=== PATIENT | male | born 1955 | race Caucasian/White ===

== ENCOUNTER → 2016-03-15 | Outpatient (CLI) | payer OTHER ==
[~2016-03-15] MED LIST: FEXO1TAB49 PO; HYDR-5688 PO; IBUP-103 PO; MISCCAP80 PO; OMEG10007 PO
[2016-03-15 14:42] LABS: BASO % 0.6 %; BASO ABS # 0.05 K/uL (0-0.2); COMPLETE YES; HEMATOCRIT 47.3 % (42-52); IG% 0.3 %; LYMPH % 21.1 %; LYMPH ABS # 1.66 K/uL (1.2-3.4); MEAN CELL VOLUME 89.1 fL (80-100); MEAN PLATELET VOLUME 11.5 fL (7.4-10.4); MONO % 7.8 %; NEUT % 69.2 %; PLATELET COUNT 175 K/uL (130-400); RED BLOOD COUNT 5.31 M/uL (4.7-6.1); WHITE BLOOD COUNT 7.87 K/uL (4.8-10.8)
[2016-03-15 15:04] LABS: BLOOD UREA NITROGEN 22 mg/dl (7-18); BUN/CREATININE RATIO 21.7 (10-20); CALCIUM 9.2 mg/dl (8.5-10.1); CARBON DIOXIDE 25 mmol/L (21-32); CHLORIDE 105 mmol/L (98-107); CREATININE 0.99 mg/dl (0.60-1.40); GLUCOSE 74 mg/dl (70-99); POTASSIUM 4.3 mmol/L (3.5-5.1); SODIUM 140 mmol/L (136-145)
== END | disposition home or self-care (01) ==
LOC: C.LAB1850 13:09
PROVIDERS: ATTEND Surgery
DX: Z01.812 Encounter for preprocedural laboratory examination (principal); D17.1 Benign lipomatous neoplasm of skin and subcutaneous tissue of trunk

== ENCOUNTER → 2016-03-16 | Outpatient (CLI) | payer OTHER | END | disposition home or self-care (01) | LOC: C.CPL 17:03 | PROVIDERS: ATTEND Surgery | DX: D17.1 Benign lipomatous neoplasm of skin and subcutaneous tissue of trunk (principal) ==

== ENCOUNTER → 2016-03-20 | Day surgery (SDC) | payer OTHER ==
[2016-03-14 08:40] VITALS: Ht 175.3 cm; Wt 84.1 kg
[~2016-03-20] VITALS: Ht 175.3 cm; Wt 84.1 kg
[~2016-03-20] MED LIST changes: +ATROPINE SULFATE 0.1 MG/ML 5ML SYR IV PRN; +CEFAZOLIN 2000 MG/60 ML D5W IV SCH; +EpHEDrine SULFATE INJ 50 MG/ML AMP IV PRN; +FENTANYL CITRATE INJ 50 MCG/1 ML 2 ML VIAL IV PRN; +FENTANYL CITRATE INJ 50 MCG/1 ML 2 ML VIAL ONE; +HYDROCODONE/ACETAMOPHEN 5/325MG TAB PO PRN; +HYDROmorphone INJ 1 MG/ML SYR IV PRN; +LACTATED RINGER'S 1000ML 1,000 ML IV SCH; +LIDOCAINE HCL 1% 20 ML VIAL ONE; +LIDOCAINE HCL 2% 2 ML VIAL (20MG/ML) ONE; +MIDAZOLAM HCL 1 MG/ML 2ML VIAL ONE; +ONDANSETRON INJ 2 MG/ML 2 ML VIAL IV PRN; +PROPOFOL IV EMULSION 10 MG/ML 20 ML VIAL IV ONE; +SODIUM CHLORIDE 0.9% 1000ML 1,000 ML IV SCH
[2016-03-20 13:49] VITALS: TEMP 36.5
--- NOTE | 2016-03-20 13:51 | [facility] Operative Report ---
Operative Report Operative Date Mar 20, 2016. Pre-Operative Diagnosis left chest lipoma Post-Operative Diagnosis same Procedure(s) Performed excision Lt chest lipoma Surgeon dr short Disability Program Navigator Surgeon(s) none Estimated Blood Loss 5CC Findings 4x3.5 cm intramuscular lipoma Specimens a lipoma left chest Anesthesia local / sedation Complication(s) None Disposition Recovery Room / PACU I attest to the content of the Intraoperative Record and any orders documented therein. Any exceptions are noted below.
--- NOTE | 2016-03-20 13:55 | Discharge Instructions-[facility]urgCtr ---
Discharge Instructions Visit Reason for Visit: Left Chest Lipoma Discharge Discharge Diagnosis / Problem: lipoma Discharge Goals Goal(s): Decrease discomfort, Improve function, Improve disease control Activity Recommendations Activity Limitations: as noted below Lifting Limitations: no more than 25 pounds Exercise/Sports Limitations: until after follow-up appointment May Resume Sexual Activity: when tolerated Shower/Bathe: keep incision dry (may shower over incision on 03/22) Driving or Machine Use: resume 1 day after discharge SPECIAL CARE INSTRUCTIONS: * Cover incisions and change daily for comfort/drainage. * Leave steri strips in place * May use ibuprofen for pain as tolerated. * Expect some swelling and bruising. Call your doctor if: * Temperature above 101 degrees * Pain not relieved by pain medicine ordered * There is increased drainage or redness from any incision * You have any unanswered questions or concerns [phone]. FOLLOW UP VISIT: If not already scheduled, please call the office for a follow-up visit. for next week- suture removal OFFICE PHONE NUMBER: Dr. Mckeon Office Anesthesia . Post Anesthesia Instructions: If you have had General Anesthesia or IV Sedation: * Do not drive today. * Resume driving when surgeon permits. * Do not make important decisions or sign legal documents today. * Call surgeon for: 1. Temperature elevations greater than 101 degrees F. 2. Uncontrollable pain. 3. Excessive bleeding. 4. Persistent nausea and vomiting. 5. Medication intolerance (nausea, vomiting or rash). * For nausea and vomiting use only clear liquids such as: tea, soda, bouillon until nausea subsides, then gradually increase diet as tolerated. * If you have any concerns or questions, call your surgeon's office. If physician is unavailable and it is an emergency, call 911 or go to the nearest emergency room. . Diet Recommendations Home Diet: resume previous diet Procedures Procedures Performed: Left Chest Lipoma Excision Pending Studies Studies pending at discharge: no Medical Emergencies . Who to Call and When: Medical Emergencies: If at any time you feel your situation is an emergency, please call 911 immediately. . Non-Emergent Contact Non-Emergency issues call your: Surgeon . . "Provider Documentation" section prepared by Fareed Mckeon.
--- NOTE | 2016-03-20 14:17 | OPERATIVE REPORT ---
DATE OF OPERATION: 03/20/2016 PREOPERATIVE DIAGNOSIS: Left chest lipoma. POSTOPERATIVE DIAGNOSIS: Same. NAME OF OPERATION: Excision of 4 x 3.5 cm lipoma. FINDINGS: The lipoma was intermuscular in the serratus muscle on the left side of the chest. STAFF SURGEON: Dr. Mckeon. ANESTHESIA: 1% plain lidocaine with sedation. PROCEDURE: The patient was brought in the operating room and placed on the operating room table in supine position. His left arm was extended onto an arm board. His left chest was prepped and draped in usual fashion. Using 1% plain lidocaine incision was made in the left chest, carrying dissection down through the subcutaneous tissue and then the latissimus dorsi muscle was posterior and the lipoma was obviously intramuscular within the serratus muscle. It was gently dissected away from the muscle fibers being careful not to cut the muscle fibers and excising the lipoma which was 4 x 3.5 cm in diameter. The deep muscle was reapproximated in the bed of the lipoma using 2-0 chromic catgut suture and then the subcutaneous tissue reapproximated using 2-0 plain catgut suture, then the skin reapproximated using subcuticular 5-0 Monocryl with the knots on the outside of the skin with Steri-Strips applied. The patient was transferred to recovery room in stable condition. I attest to the content of the Intraoperative Record and any orders documented therein. Any exceptio ns are noted below.
[2016-03-20 14:19] VITALS: BP 119/82; PULSE 69; O2SAT 98
--- NOTE | 2016-03-20 14:20 | Anesthesia Progress Nt - [facility] ---
Anesthesia Post Op Note Date & Time Mar 20, 2016 at 14:19 Vital Signs Pain Intensity: 0 Vital Signs Past 12 Hours Date Time Temp Pulse Resp B/P Pulse Ox O2 Delivery O2 Flow Rate FiO2 03/20/16 13:49 36.5 71 16 113/70 96 Room Air 03/20/16 12:09 36.6 80 16 124/84 98 Room Air Notes Mental Status: alert / awake / arousable, participated in evaluation Pt Amnestic to Procedure: Yes Nausea / Vomiting: adequately controlled Pain: adequately controlled Airway Patency, RR, SpO2: stable & adequate BP & HR: stable & adequate Hydration State: stable & adequate Anesthetic Complications: no major complications apparent
== END | disposition home or self-care (01) ==
LOC: X.SURG 11:59
PROVIDERS: ATTEND Surgery
DX: D21.3 Benign neoplasm of connective and other soft tissue of thorax (principal); N41.0 Acute prostatitis; M19.90 Unspecified osteoarthritis, unspecified site; R53.83 Other fatigue; G47.30 Sleep apnea, unspecified

== ENCOUNTER → 2016-09-26 | Outpatient (CLI) | payer OTHER ==
[~2016-09-26] MED LIST changes: -ATROPINE SULFATE 0.1 MG/ML 5ML SYR IV PRN; -CEFAZOLIN 2000 MG/60 ML D5W IV SCH; -EpHEDrine SULFATE INJ 50 MG/ML AMP IV PRN; -FENTANYL CITRATE INJ 50 MCG/1 ML 2 ML VIAL IV PRN; -FENTANYL CITRATE INJ 50 MCG/1 ML 2 ML VIAL ONE; -HYDR-5688 PO; -HYDROCODONE/ACETAMOPHEN 5/325MG TAB PO PRN; -HYDROmorphone INJ 1 MG/ML SYR IV PRN; -LACTATED RINGER'S 1000ML 1,000 ML IV SCH; -LIDOCAINE HCL 1% 20 ML VIAL ONE; -LIDOCAINE HCL 2% 2 ML VIAL (20MG/ML) ONE; -MIDAZOLAM HCL 1 MG/ML 2ML VIAL ONE; -ONDANSETRON INJ 2 MG/ML 2 ML VIAL IV PRN; -PROPOFOL IV EMULSION 10 MG/ML 20 ML VIAL IV ONE; -SODIUM CHLORIDE 0.9% 1000ML 1,000 ML IV SCH
[2016-09-26 15:13] LABS: ALT/SGPT 40 U/L (12-78); AST/SGOT 20 U/L (15-37); BLOOD UREA NITROGEN 25 mg/dl (7-18); BUN/CREATININE RATIO 24.7 (10-20); CALCIUM 9.2 mg/dl (8.5-10.1); CARBON DIOXIDE 30 mmol/L (21-32); CHLORIDE 107 mmol/L (98-107); CHOLESTEROL 181 mg/dl (0-200); GLUCOSE 87 mg/dl (70-99); POTASSIUM 4.7 mmol/L (3.5-5.1); SODIUM 142 mmol/L (136-145)
[2016-09-26 15:17] LABS: HDL CHOLESTEROL 61 mg/dl; LDL CHOLESTEROL CALCULATED 104 mg/dl; PROSTATE SPECIFIC ANTIGEN 0.702 ng/ml (0.000-4.000); TRIGLYCERIDES 78 mg/dl (0-150); VERY LOW DENSITY LIPOPROT CALC 16 mg/dl
== END | disposition home or self-care (01) ==
LOC: C.LAB1850 12:43
PROVIDERS: ATTEND Internal Medicine
DX: E78.00 Pure hypercholesterolemia, unspecified (principal); N40.1 Benign prostatic hyperplasia with lower urinary tract symptoms

== ENCOUNTER → 2017-04-22 | Day surgery (SDC) | payer OTHER ==
[2017-04-12 09:19] VITALS: Ht 177.8 cm; Wt 84.1 kg
[~2017-04-22] VITALS: Ht 177.8 cm; Wt 84.1 kg
[~2017-04-22] MED LIST changes: +LIDOCAINE HCL 2% 2 ML VIAL (20MG/ML) ONE; +PROPOFOL IV EMULSION 10 MG/ML 20 ML VIAL IV ONE
--- NOTE | 2017-04-22 10:28 | Endo History and Physical ---
History & Physical Date of Service: Apr 22, 2017. Chief Complaint: screening Referring Physician: Dr. Mu Arias History of Present Illness 62 yo CM who presents for screening colonoscopy. Past Surgical History Hx Cardiac Surgery: No Hx Internal Defibrillator: No Hx Pacemaker: No Hx Abdominal Surgery: Yes (APPY) Hx of Implantable Prosthesis: No Hx Post-Op Nausea and Vomiting: No Hx Cancer Surgery: Yes (EAR/FOREHEAD MOHS PROCEDURE) Hx Thoracic Surgery: No Hx Orthopedic: No Hx Urinary Tract Surgery: No Family History None Social History Smoking Status: Never Smoker Hx Substance Use: No Hx Alcohol Use: Yes ("VERY LITTLE") Allergies Coded Allergies: No Known Allergies (Verified , 04/22/17) Current Medications Reported Home Medications Medications Dose Route/Sig Max Daily Dose Days Date Category Advil (Ibuprofen) 200 Mg Tab 200-600 Mg PO Q4H PRN 03/14/16 Reported [place]-3 (Fish Oil) 1 Ea Cap 1 Cap PO QAM 03/14/16 Reported Probiotic (Probiotic Product) 1 Cap Cap 1 Cap PO QAM 02/16/15 Reported Marlys Allergy (Fexofenadine Hcl) 180 Mg Tab 1 Tab PO QAM 02/16/15 Reported Vital Signs Weight (Kilograms): 84.09 Height (Feet): 5 Height (Inches): 10 Date Time Temp Pulse Resp B/P (MAP) Pulse Ox O2 Delivery O2 Flow Rate FiO2 04/22/17 10:07 36.5 84 18 149/89 (109) 95 Room Air Physical Exam General Appearance: WD/WN, no apparent distress Respiratory/Chest: Auscultation: breath sounds normal Cardiovascular: Heart Auscultation: RRR Abdomen: Bowel Sounds: normal Inspection & Palpation: soft, non-distended, no tenderness, guarding & rebound Assessment and Plan Assessment: 62 yo CM who presents for screening colonoscopy. Plan: Proceed with colonoscopy.
--- NOTE | 2017-04-22 11:18 | Discharge Instructions ---
Endoscopy Patient Instructions Date / Procedure(s) Performed Apr 22, 2017. Colonoscopy Allergy Information Coded Allergies: No Known Allergies (Verified , 04/22/17) Discharge Date / Findings Apr 22, 2017. Internal hemorrhoids Medication Instructions OK to resume all medications today as prescribed Reported Home Medications Medications Dose Route/Sig Max Daily Dose Days Date Category Advil (Ibuprofen) 200 Mg Tab 200-600 Mg PO Q4H PRN 03/14/16 Reported [place]-3 (Fish Oil) 1 Ea Cap 1 Cap PO QAM 03/14/16 Reported Probiotic (Probiotic Product) 1 Cap Cap 1 Cap PO QAM 02/16/15 Reported Marlys Allergy (Fexofenadine Hcl) 180 Mg Tab 1 Tab PO QAM 02/16/15 Reported Provider Instructions Activity Restrictions - No exercising or heavy lifting for 24 hours. - Do not drink alcohol the day of the procedure. - Do not drive a car or operate machinery until the day after the procedure. - Do not make any important decisions or sign important papers in 24 hours after the procedure. Following Day: - Return to full activity which may include returning to work/school. Diet Start your diet with liquids and light foods (jello, soup, juice, toast). Then eat your usual diet if not nauseated. Treatment For Common After Affects For mild abdominal pain, bloating, or excessive gas: - Rest - Eat lightly - Lie on right side Follow-Up Information Follow-up with Dr. Mu Arias as scheduled Anesthesia Information What You Should Know You have had a procedure that required some medicine to reduce anxiety and discomfort. This treatment is called moderate sedation. After receiving the treatment, you may be sleepy, but you will be able to breathe on your own. The effects of the treatment may last for several hours. Follow these instructions along with Activity/Diet recommendations noted above: * Do NOT do anything where dizziness or clumsiness would be dangerous. * Rest quietly at home today, then you can be up and about tomorrow. * Have a responsible person stay with you the rest of today. * You may have had an I.V. today. If so, you may take the dressing off later today. Recommendations Call your doctor if: * Trouble breathing * Continuous vomiting for more than 24 hours * Temperature above 101 degrees * Severe abdominal pain or bloating * Pain not relieved by pain medicine ordered * There is increased drainage or redness from any incision * A large amount of rectal bleeding greater than 2-3 tablespoons. (If you had a polyp/s removed or have hemorrhoids, a small amount of blood - from the rectum is to be expected.) * You have any unanswered questions or concerns. IN THE EVENT OF A SERIOUS EMERGENCY, GO TO THE NEAREST EMERGENCY ROOM Your discharge instructions were prepared by provider Horacio Guerra. Patient Instructions Signature Page Mu Umaña Patient (or Guardian) Signature/Date: I have read and understand the instructions given to me by my caregivers. Caregiver/RN/Doctor Signature/Date: The above-named patient and/or guardian has received patient instructions on this date. + Original Patient Signature Page (only) stays with chart. Please make copy for patient.
--- NOTE | 2017-04-22 11:18 | GI REPORT ---
Procedure Date: 04/22/2017 10:33 AM Procedure: Colonoscopy Indications: Screening for colorectal malignant neoplasm Medicines: Monitored Anesthesia Care Complications: No immediate complications. Estimated Blood Loss: Estimated blood loss: none. Procedure: Pre-Anesthesia Assessment: - Prior to the procedure, a History and Physical was performed, and patient medications and allergies were reviewed. The patient's tolerance of previous anesthesia was also reviewed. The risks and benefits of the procedure and the sedation options and risks were discussed with the patient. All questions were answered, and informed consent was obtained. Prior Anticoagulants: The patient has taken no previous anticoagulant or antiplatelet agents. ASA Grade Assessment: I - A normal, healthy patient. After reviewing the risks and benefits, the patient was deemed in satisfactory condition to undergo the procedure. After I obtained informed consent, the scope was passed under direct vision. Throughout the procedure, the patient's blood pressure, pulse, and oxygen saturations were monitored continuously. The scope was introduced through the anus and advanced to the terminal ileum. The colonoscopy was performed without difficulty. The patient tolerated the procedure well. The quality of the bowel preparation was good. The terminal ileum, ileocecal valve, appendiceal orifice, and rectum were photographed. Findings: The perianal and digital rectal examinations were normal. Non-bleeding internal hemorrhoids were found during retroflexion. The hemorrhoids were small. Impression: - Non-bleeding internal hemorrhoids. - No specimens collected. Recommendation: - Resume previous diet. - Continue present medications. - Repeat colonoscopy in 10 years for surveillance. - Return to primary care physician as previously scheduled. Horacio Guerra DO 04/22/2017 11:17:52 AM This report has been signed electronically. Note Initiated On: 04/22/2017 10:33 AM I attest to the content of the Intraoperative Record and orders documented therein, exceptions below
--- NOTE | 2017-04-22 11:40 | Anesthesiology Progress Note ---
Anesthesia Post Op Note Date & Time Apr 22, 2017 at 11:40 Vital Signs Pain Intensity: 0 Vital Signs Past 12 Hours Date Time Temp Pulse Resp B/P (MAP) Pulse Ox O2 Delivery O2 Flow Rate FiO2 04/22/17 11:15 60 18 103/65 (78) 95 Room Air 04/22/17 10:07 36.5 84 18 149/89 (109) 95 Room Air Notes Mental Status: alert / awake / arousable, participated in evaluation Pt Amnestic to Procedure: Yes Nausea / Vomiting: adequately controlled Pain: adequately controlled Airway Patency, RR, SpO2: stable & adequate BP & HR: stable & adequate Hydration State: stable & adequate Anesthetic Complications: no major complications apparent
[2017-04-22 11:50] VITALS: BP 121/88; PULSE 71; O2SAT 98
== END | disposition home or self-care (01) ==
LOC: C.GI 09:52
PROVIDERS: ATTEND Internal Medicine
DX: Z12.11 Encounter for screening for malignant neoplasm of colon (principal); K64.8 Other hemorrhoids; G47.33 Obstructive sleep apnea (adult) (pediatric); M19.90 Unspecified osteoarthritis, unspecified site; N40.0 Benign prostatic hyperplasia without lower urinary tract symptoms; Z85.820 Personal history of malignant melanoma of skin; Z90.49 Acquired absence of other specified parts of digestive tract; Z99.89 Dependence on other enabling machines and devices